=== PATIENT | male | born 1945 | race Caucasian/White ===

== ENCOUNTER → 2016-07-19 | Outpatient (CLI) | payer MEDICARE, BC ==
[~2016-07-19] MED LIST: ALLO300 PO; APIX1TAB PO; GETGO ROLLING W1 MI1; METO50TA PO; VITA250L PO; [UNRECOGNIZED DRUG - CODE] INH
[2016-07-19 13:04] LABS: HEMATOCRIT 40.6 % (39.0-51.0); MEAN CELL VOLUME 90.2 FL (80.0-100.0); MEAN CORPUSCULAR HEMOGLOBIN 29.8 PG (27.0-34.0); PLATELET COUNT 240 TH/MM3 (150-450); RED CELL DISTRIBUTION WIDTH 14.1 % (11.6-17.2); REVIEW FLAG FINAL; WHITE BLOOD COUNT 9.8 TH/MM3 (4.0-11.0)
[2016-07-19 13:35] LABS: BICARBONATE 28.4 MEQ/L (21.0-32.0); HDL CHOLESTEROL 50.3 MG/DL (40.0-60.0); POTASSIUM 4.1 MEQ/L (3.5-5.1)
== END ==
LOC: CLAB 12:46
PROVIDERS: ATTEND Internal Medicine Interventional Cardiology
DX: I48.0 Paroxysmal atrial fibrillation (principal); E78.2 Mixed hyperlipidemia; I25.10 Atherosclerotic heart disease of native coronary artery without angina pectoris; Z79.01 Long term (current) use of anticoagulants
CPT/HCPCS: 36415; 80048; 80061; 84450; 84460; 85027

== ENCOUNTER → 2016-08-28 | Outpatient (CLI) | payer MEDICARE, BC | LOC: CLAB 09:13 | PROVIDERS: ATTEND Internal Medicine Interventional Cardiology | DX: I48.0 Paroxysmal atrial fibrillation (principal); E78.2 Mixed hyperlipidemia; D80.2 Selective deficiency of immunoglobulin A [IgA]; Z79.01 Long term (current) use of anticoagulants | CPT/HCPCS: 36415; 80061; 84450; 84460 ==

== ENCOUNTER → 2017-03-07 | Outpatient (CLI) | payer MEDICARE, BC ==
[2017-03-07 14:00] LABS: HEMATOCRIT 35.7 % (39.0-51.0); MEAN CORPUSCULAR HEMOGLOBIN 30.9 PG (27.0-34.0); MEAN CORPUSCULAR HGB CONC 34.7 % (32.0-36.0); PLATELET COUNT 235 TH/MM3 (150-450); RED BLOOD COUNT 4.01 MIL/MM3 (4.50-5.90); RED CELL DISTRIBUTION WIDTH 14.1 % (11.6-17.2); REVIEW FLAG FINAL; WHITE BLOOD COUNT 9.7 TH/MM3 (4.0-11.0)
[2017-03-07 14:33] LABS: BICARBONATE 26.1 MEQ/L (21.0-32.0); POTASSIUM 3.9 MEQ/L (3.5-5.1)
[2017-03-07 14:36] LABS: HDL CHOLESTEROL 59.4 MG/DL (40.0-60.0)
== END ==
LOC: CLAB 13:18
PROVIDERS: ATTEND Internal Medicine Interventional Cardiology
DX: I11.9 Hypertensive heart disease without heart failure (principal); I25.10 Atherosclerotic heart disease of native coronary artery without angina pectoris; R94.39 Abnormal result of other cardiovascular function study; E78.00 Pure hypercholesterolemia, unspecified; E66.01 Morbid (severe) obesity due to excess calories
CPT/HCPCS: 36415; 80048; 80061; 84450; 84460; 85027

== ENCOUNTER → 2017-04-02 | Outpatient (CLI) | payer MEDICARE, BC ==
[2017-04-02 09:00] LABS: AUTOMATED NEUTROPHIL # 4.1 TH/MM3 (1.8-7.7); BASOPHIL # 0.1 TH/MM3 (0-0.2); EOSINOPHIL # 0.4 TH/MM3 (0-0.4); EOSINOPHIL % 5.3 % (0.0-4.0); HEMATOCRIT 37.3 % (39.0-51.0); HEMO FLAGS DIFF FINAL; LYMPH % 34.2 % (9.0-44.0); LYMPHOCYTE # 2.9 TH/MM3 (1.0-4.8); MEAN CELL VOLUME 88.1 FL (80.0-100.0); MEAN CORPUSCULAR HEMOGLOBIN 29.7 PG (27.0-34.0); MEAN CORPUSCULAR HGB CONC 33.7 % (32.0-36.0); NEUT % 49.5 % (16.0-70.0); PLATELET COUNT 258 TH/MM3 (150-450); RED BLOOD COUNT 4.23 MIL/MM3 (4.50-5.90); WHITE BLOOD COUNT 8.3 TH/MM3 (4.0-11.0)
[2017-04-02 09:21] LABS: ANION GAP 6 MEQ/L (5-15); AST (GOT) 18 U/L (15-37); BLOOD UREA NITROGEN 17 MG/DL (7-18); CHLORIDE 104 MEQ/L (98-107); GLOMERULAR FILTRATION RATE 79 ML/MIN (>89); GLUCOSE,FASTING 109 MG/DL (74-99); SODIUM (NA) 139 MEQ/L (136-145)
[2017-04-02 09:22] LABS: ALT (GPT) 22 U/L (12-78)
[2017-04-02 09:25] LABS: ALKALINE PHOSPHATASE 131 U/L (45-117); HDL CHOLESTEROL 59.5 MG/DL (40.0-60.0); LDL CHOLESTEROL 43 MG/DL (0-99); TOTAL BILIRUBIN ADULT 0.4 MG/DL (0.2-1.0)
== END ==
LOC: CLAB 08:32
PROVIDERS: ATTEND Family Medicine
DX: I26.99 Other pulmonary embolism without acute cor pulmonale (principal); E78.2 Mixed hyperlipidemia; F10.10 Alcohol abuse, uncomplicated; E11.9 Type 2 diabetes mellitus without complications; M10.9 Gout, unspecified; I25.10 Atherosclerotic heart disease of native coronary artery without angina pectoris; R60.0 Localized edema; R94.39 Abnormal result of other cardiovascular function study; I10 Essential (primary) hypertension; Z86.718 Personal history of other venous thrombosis and embolism; Z68.39 Body mass index [BMI] 39.0-39.9, adult; Z91.81 History of falling
CPT/HCPCS: 36415; 80053; 80061; 85025

== ENCOUNTER → 2017-08-17 | Outpatient (CLI) | payer MEDICARE, BC ==
[2017-08-17 09:43] LABS: BICARBONATE 25.5 MEQ/L (21.0-32.0); CALCIUM 9.2 MG/DL (8.5-10.1); CREATININE 0.87 MG/DL (0.60-1.30)
== END ==
LOC: CLAB 08:40
PROVIDERS: ATTEND Internal Medicine Interventional Cardiology
DX: R06.02 Shortness of breath (principal); R60.0 Localized edema; R94.39 Abnormal result of other cardiovascular function study; E66.09 Other obesity due to excess calories
CPT/HCPCS: 36415; 80048

== ENCOUNTER → 2017-09-26 | Outpatient (CLI) | payer MEDICARE, BC ==
[2017-09-26 09:26] LABS: CHOLESTEROL/ HDL RATIO 2.06 RATIO; HDL CHOLESTEROL 48.5 MG/DL (40.0-60.0)
== END ==
LOC: CLAB 08:39
PROVIDERS: ATTEND Internal Medicine Interventional Cardiology
DX: E78.00 Pure hypercholesterolemia, unspecified (principal); R94.39 Abnormal result of other cardiovascular function study; R06.02 Shortness of breath; R60.0 Localized edema; E66.09 Other obesity due to excess calories
CPT/HCPCS: 36415; 80061; 84450; 84460